=== PATIENT | female | born 1965 | race Hispanic/Latino ===

== ENCOUNTER 2019-01-17 01:25 | Emergency (ER) | payer MEDICAID ==
--- NOTE | 2019-01-17 02:04 | ED PDOC ---
Arrival/HPI - General Chief Complaint: Psychiatric Evaluation Time Seen by Provider: 01/17/19 01:25 Historian: Patient, EMS - History of Present Illness Narrative History of Present Illness (Text): 01/17/19 02:03 53 year old female, with no significant past medical history, presents to the emergency department by PD and EMS for evaluation for depression after being found walking on the [facility] with her car parked. Patient denies that she is depressed and reports she parked her car to stare at the bridge lights. Patient denies any fever, chills, chest pain, shortness of breath, nausea, vomiting, diarrhea, urinary symptoms, back pain, neck pain, headache, dizziness, or any other complaints. Past Medical History - Provider Review Nursing Documentation Reviewed: Yes - Psychiatric Hx Substance Use: No - Surgical History Hx Orthopedic Surgery: Yes (BL THR) Family/Social History - Physician Review Nursing Documentation Reviewed: Yes Family/Social History: No Known Family HX Smoking Status: Never Smoked Hx Alcohol Use: No Hx Substance Use: No Allergies/Home Meds Allergies/Adverse Reactions: Allergies No Known Allergies Allergy (Verified 01/17/19 01:35) Home Medications: Home Meds Medication Instructions Recorded Confirmed No Known Home Med 01/17/19 01/17/19 Review of Systems - Physician Review All systems were reviewed & negative as marked: Yes - Review of Systems Constitutional: absent: Fevers, Other (chills) Respiratory: absent: SOB Cardiovascular: absent: Chest Pain Gastrointestinal: absent: Diarrhea, Nausea, Vomiting Genitourinary Female: absent: Dysuria, Frequency, Hematuria Musculoskeletal: absent: Back Pain, Neck Pain Neurological: absent: Headache, Dizziness Psychiatric: Depression. absent: Suicidal Ideation Physical Exam Vital Signs Reviewed: Yes Vital Signs Temp Pulse Resp BP Pulse Ox 01/17/19 01:31 98.5 F 90 18 158/93 H 95 Temperature: Afebrile Blood Pressure: Normal Pulse: Regular Respiratory Rate: Normal Appearance: Positive for: Well-Appearing, Non-Toxic, Comfortable Pain Distress: None Mental Status: Positive for: Alert and Oriented X 3 - Systems Exam Head: Present: Atraumatic, Normocephalic Pupils: Present: PERRL Extroacular Muscles: Present: EOMI Conjunctiva: Present: Normal Mouth: Present: Moist Mucous Membranes Neck: Present: Normal Range of Motion Respiratory/Chest: Present: Clear to Auscultation, Good Air Exchange. No: Respiratory Distress, Accessory Muscle Use Cardiovascular: Present: Regular Rate and Rhythm, Normal S1, S2. No: Murmurs Abdomen: No: Tenderness, Distention, Peritoneal Signs Back: Present: Normal Inspection Upper Extremity: Present: Normal Inspection. No: Cyanosis, Edema Lower Extremity: Present: Normal Inspection. No: Edema Neurological: Present: GCS=15, CN II-XII Intact, Speech Normal Skin: Present: Warm, Dry, Normal Color. No: Rashes Psychiatric: Present: Alert, Oriented x 3, Normal Insight, Normal Concentration Medical Decision Making ED Course and Treatment: 01/17/19 02:21 Impression: 53 year old female presents for evaluation for depression after being found at the [facility] with her car parked. Plan: -- EKG -- Labs -- Chest X-ray -- Urinalysis -- PES Eval -- Reassess and disposition Progress Notes: CXR Impression: As read by me, No active disease EKG shows NSR at 88 BPM. Interpreted by me. 01/17/19 04:45 PES evaluated patient. Patient will have a face to face in the morning with Dr. Livingston. - Lab Interpretations I have reviewed the lab results: Yes - RAD Interpretation Radiology Orders: 01/17/19 01:39 CHEST PORTABLE [RAD] Stat Flight Instructor: ED Physician - EKG Interpretation Interpreted by ED Physician: Yes Type: 12 lead EKG - Transfer of Care Patient signed out to Dr:: delicia oliver re eval - Scribe Statement The provider has reviewed the documentation as recorded by the Taqueria Anderson Provider Scribe Attestation: All medical record entries made by the Taqueria were at my direction and personally dictated by me. I have reviewed the chart and agree that the record accurately reflects my personal performance of the history, physical exam, medical decision making, and the department course for this patient. I have also personally directed, reviewed, and agree with the discharge instructions and disposition. Disposition/Present on Arrival - Present on Arrival Any Indicators Present on Arrival: No History of DVT/PE: No History of Uncontrolled Diabetes: No Urinary Catheter: No History of Decub. Ulcer: No History Surgical Site Infection Following: None - Disposition Have Diagnosis and Disposition been Completed?: Yes Diagnosis: Depression Disposition Time: 07:00 Condition: GOOD Forms: [employer] (Swedish)
[2019-01-17 02:05] LABS: ACETAMINOPHEN < 10.0 ug/ml (10.0-20.0); SALICYLATE < 1 mg/dL (2.0-20.0)
[2019-01-17 02:06] LABS: ALB/GLOB RATIO 1.6 (1.1-1.8); ALBUMIN 4.3 g/dL (3.0-4.8); ALT/SGPT 28 U/L (7-56); AST/SGOT 33 U/L (14-36); BLOOD UREA NITROGEN 19 mg/dL (7-21); CALCIUM 9.6 mg/dL (8.4-10.5); GFR NON-AFRICAN AMERICAN > 60
[2019-01-17 02:13] LABS: BASO # 0.03 K/mm3 (0.0-2.0); BASO % 0.3 % (0.0-3.0); EOS # 0.2 (0.0-0.7); EOS % 1.7 % (1.5-5.0); HEMOGLOBIN 13.3 g/dL (12.0-16.0); LYMPH # 1.9 (1.2-3.4); LYMPH % 21.6 % (22.0-35.0); MEAN CELL VOLUME 87.6 fl (80.0-105.0); MEAN CORPUSCULAR HGB CONC 34.2 g/dl (31.0-37.0); MEAN PLATELET VOLUME 9.4 fl (7.0-11.0); MONO # 0.5 (0.1-0.6); MONO % 5.5 % (1.0-6.0); RBC 4.44 10^6/uL (3.5-6.1); RED CELL DISTRIBUTION WIDTH 15.1 % (11.5-14.5); WHITE BLOOD COUNT 8.9 10^3/uL (4.5-11.0)
[2019-01-17 03:37] LABS: BARBITURATES, UR NEGATIVE (NEGATIVE); BENZODIAZEPINES, UR NEGATIVE (NEGATIVE); OPIATES, UR NEGATIVE (NEGATIVE); PHENCYCLIDINE, UR NEGATIVE (NEGATIVE)
[2019-01-17 03:39] LABS: URINE APPEARANCE CLEAR (CLEAR); URINE BILIRUBIN NEGATIVE (NEGATIVE); URINE BLOOD SMALL (NEGATIVE); URINE COLOR STRAW (YELLOW); URINE GLUCOSE (UA) NEGATIVE (NEGATIVE); URINE LEUKOCYTE ESTERASE NEGATIVE Leu/uL (NEGATIVE); URINE PROTEIN NEGATIVE mg/dL (<30 mg/dL); URINE UROBILINOGEN 0.2 E.U./dL (<1 E.U./dL)
[2019-01-17 03:43] LABS: URINE BACTERIA FEW /hpf; URINE EPITHELIAL CELLS 0 - 2 /hpf (0-5); URINE RBC 0 - 2 /hpf (0-2); URINE WBC 0 - 2 /hpf (0-6)
--- NOTE | 2019-01-17 07:18 | ED PDOC ---
Physical Exam Vital Signs Reviewed: Yes Vital Signs Temp Pulse Resp BP Pulse Ox 01/17/19 03:47 80 18 123/73 96 01/17/19 01:31 98.5 F 90 18 158/93 H 95 Temperature: Afebrile Blood Pressure: Normal Pulse: Regular Respiratory Rate: Normal Appearance: Positive for: Well-Appearing, Non-Toxic, Comfortable Pain Distress: None Mental Status: Positive for: Alert and Oriented X 3 Medical Decision Making ED Course and Treatment: 01/17/19 07:17 Patient signed out to me by Dr. Greenberg, pending evaluation by Dr. Livingston 01/17/19 09:[address] Livingston and recommended for [facility] screening for committment 01/17/19 09:41 Became agitated and aggressive after being told that she would need [facility] screening. Medicated 01/17/19 18:46 Accepted by [facility] for commitment. Signed out to Dr. Huizar as pending [facility] bed. - Lab Interpretations Lab Results: Total Bilirubin 0.5 mg/dL (0.2-1.3) 01/17/19 01:45 AST 33 U/L (14-36) 01/17/19 01:45 ALT 28 U/L (7-56) 01/17/19 01:45 Alkaline Phosphatase 67 U/L (38-126) 01/17/19 01:45 Total Protein 7.1 g/dL (5.8-8.3) 01/17/19 01:45 Albumin 4.3 g/dL (3.0-4.8) 01/17/19 01:45 Globulin 2.8 gm/dL 01/17/19 01:45 Albumin/Globulin Ratio 1.6 (1.1-1.8) 01/17/19 01:45 Urine Color Straw (YELLOW) 01/17/19 03:00 Urine Appearance Clear (CLEAR) 01/17/19 03:00 Urine pH 6.0 (4.7-8.0) 01/17/19 03:00 Ur Specific [place] 1.010 (1.005-1.035) 01/17/19 03:00 Urine Protein Negative mg/dL (<30 mg/dL) 01/17/19 03:00 Urine Glucose (UA) Negative mg/dL (NEGATIVE) 01/17/19 03:00 Urine Ketones Negative mg/dL (NEGATIVE) 01/17/19 03:00 Urine Blood Small (NEGATIVE) H 01/17/19 03:00 Urine Nitrate Negative (NEGATIVE) 01/17/19 03:00 Urine Bilirubin Negative (NEGATIVE) 01/17/19 03:00 Urine Urobilinogen 0.2 E.U./dL (<1 E.U./dL) 01/17/19 03:00 Ur Leukocyte Esterase Negative Radha/uL (NEGATIVE) 01/17/19 03:00 Urine RBC 0 - 2 /hpf (0-2) 01/17/19 03:00 Urine WBC 0 - 2 /hpf (0-6) 01/17/19 03:00 Ur Epithelial Cells 0 - 2 /hpf (0-5) 01/17/19 03:00 Urine Bacteria Few /hpf (NONE) 01/17/19 03:00 - RAD Interpretation Radiology Orders: 01/17/19 01:39 CHEST PORTABLE [RAD] Stat - Scribe Statement The provider has reviewed the documentation as recorded by the Scribe Ortiz [place] All medical record entries made by the Scribe were at my direction and personally dictated by me. I have reviewed the chart and agree that the record accurately reflects my personal performance of the history, physical exam, medical decision making, and the department course for this patient. I have also personally directed, reviewed, and agree with the discharge instructions and disposition. Disposition/Present on Arrival - Present on Arrival Any Indicators Present on Arrival: No History of DVT/PE: No History of Uncontrolled Diabetes: No Urinary Catheter: No History of Decub. Ulcer: No History Surgical Site Infection Following: None - Disposition Have Diagnosis and Disposition been Completed?: Yes Diagnosis: Depression Disposition: HOSPITALIZED Disposition Time: 18:47 Patient Plan: Transfer To ([facility]) Patient Problems: Current Active Problems Problem Status Onset Depression Acute Condition: FAIR Forms: [employer] (Setswana)
--- NOTE | 2019-01-17 07:37 | RAD ---
Date of service: 01/17/2019 HISTORY: pes COMPARISON: No prior. TECHNIQUE: 1 view obtained. FINDINGS: LUNGS: No active pulmonary disease. PLEURA: No significant pleural effusion identified, no pneumothorax apparent. CARDIOVASCULAR: Calcific atherosclerotic changes are seen related to the thoracic aorta. Normal cardiac size. No pulmonary vascular congestion. OSSEOUS STRUCTURES: No significant abnormalities. VISUALIZED UPPER ABDOMEN: Normal. OTHER FINDINGS: None. IMPRESSION: No acute cardiopulmonary disease appreciated.
[2019-01-17] MEDS ORDERED: Oxymetazoline 0.05% Nasal Spray (30 ml) NS STA (11:28)
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
--- NOTE | 2019-01-17 17:37 | CARD ---
APPROVED REPORT Date of service: 01/17/2019 EKG Measurement Heart [id number] <Conclusion> Normal sinus rhythm Normal Electrocardiogram
--- NOTE | 2019-01-17 19:24 | ED PDOC ---
Physical Exam Vital Signs Temp Pulse Resp BP Pulse Ox 01/17/19 16:00 68 18 128/74 98 01/17/19 10:00 75 18 130/78 96 01/17/19 03:47 80 18 123/73 96 01/17/19 01:31 98.5 F 90 18 158/93 H 95 Medical Decision Making ED Course and Treatment: 01/17/19 19:21 Case endorsed to me by Dr. Candelario, pending bed availability for transfer to [facility]. 01/18/19 07:00 Case endorsed to /pending bed availability at [facility] - Lab Interpretations Lab Results: Total Bilirubin 0.5 mg/dL (0.2-1.3) 01/17/19 01:45 AST 33 U/L (14-36) 01/17/19 01:45 ALT 28 U/L (7-56) 01/17/19 01:45 Alkaline Phosphatase 67 U/L (38-126) 01/17/19 01:45 Total Protein 7.1 g/dL (5.8-8.3) 01/17/19 01:45 Albumin 4.3 g/dL (3.0-4.8) 01/17/19 01:45 Globulin 2.8 gm/dL 01/17/19 01:45 Albumin/Globulin Ratio 1.6 (1.1-1.8) 01/17/19 01:45 Urine Color Straw (YELLOW) 01/17/19 03:00 Urine Appearance Clear (CLEAR) 01/17/19 03:00 Urine pH 6.0 (4.7-8.0) 01/17/19 03:00 Ur Specific [place] 1.010 (1.005-1.035) 01/17/19 03:00 Urine Protein Negative mg/dL (<30 mg/dL) 01/17/19 03:00 Urine Glucose (UA) Negative mg/dL (NEGATIVE) 01/17/19 03:00 Urine Ketones Negative mg/dL (NEGATIVE) 01/17/19 03:00 Urine Blood Small (NEGATIVE) H 01/17/19 03:00 Urine Nitrate Negative (NEGATIVE) 01/17/19 03:00 Urine Bilirubin Negative (NEGATIVE) 01/17/19 03:00 Urine Urobilinogen 0.2 E.U./dL (<1 E.U./dL) 01/17/19 03:00 Ur Leukocyte Esterase Negative Radha/uL (NEGATIVE) 01/17/19 03:00 Urine RBC 0 - 2 /hpf (0-2) 01/17/19 03:00 Urine WBC 0 - 2 /hpf (0-6) 01/17/19 03:00 Ur Epithelial Cells 0 - 2 /hpf (0-5) 01/17/19 03:00 Urine Bacteria Few /hpf (NONE) 01/17/19 03:00 - RAD Interpretation Radiology Orders: 01/17/19 01:39 CHEST PORTABLE [RAD] Stat - Medication Orders Current Medication Orders: Ziprasidone (Geodon Cap) 20 mg PO Q6H PRN; Protocol PRN Reason: psychosis/agitation Ziprasidone (Geodon Inj) 20 mg IM Q6H PRN; Protocol PRN Reason: severe agitaiton/psychosis Last Admin: 01/17/19 10:12 Dose: 20 mg IM Administration Charges Document 01/17/19 10:12 [facility] (Rec: 01/17/19 10:[id number] Injection Site MAR Injection Site Right Deltoid Charges for Administration # of IM Administrations 1 Discontinued Medications Haloperidol Lactate (Haldol) 5 mg IM STAT STA; Protocol Stop: 01/17/19 09:25 Ibuprofen (Motrin Tab) 600 mg PO STAT STA Stop: 01/17/19 09:22 Last Admin: 01/17/19 09:35 Dose: 600 mg MAR Pain/Vitals Document 01/17/19 09:35 [facility] (Rec: 01/17/19 09:[address] [id number] Pain Reassessment Is This A Pain ReAssessment? No Lorazepam (Ativan) 2 mg IM ONCE ONE; Protocol Stop: 01/17/19 09:25 Oxymetazoline HCl (Afrin 0.05%) 0 ml NS STAT STA Stop: 01/17/19 11:29 Last Admin: 01/17/19 12:00 Dose: 2 sprays Disposition/Present on Arrival - Present on Arrival Any Indicators Present on Arrival: No History of DVT/PE: No History of Uncontrolled Diabetes: No Urinary Catheter: No History of Decub. Ulcer: No History Surgical Site Infection Following: None - Disposition Have Diagnosis and Disposition been Completed?: No Diagnosis: Depression Disposition: HOSPITALIZED Disposition Time: 07:00 Patient Problems: Current Active Problems Problem Status Onset Depression Acute Condition: STABLE Forms: [employer] (Portuguese)
--- NOTE | 2019-01-18 07:08 | ED PDOC ---
Physical Exam - Physical Exam Narrative Physical Exam (Text): 01/18/19 18:35 Patient continues to wait for a bed to become available at . Her care will be endorsed back to the night emergency department physician Dr. Srinivasan pending a bed becoming available. Vital Signs Reviewed: Yes Vital Signs Temp Pulse Resp BP Pulse Ox 01/18/19 06:02 62 16 123/71 99 01/18/19 03:39 97.8 F 78 16 142/78 99 01/18/19 02:15 81 18 110/68 99 01/18/19 00:07 85 18 111/74 98 01/17/19 22:05 87 18 110/69 99 01/17/19 20:00 98 H 18 104/65 99 01/17/19 16:00 68 18 128/74 98 01/17/19 10:00 75 18 130/78 96 01/17/19 03:47 80 18 123/73 96 01/17/19 01:31 98.5 F 90 18 158/93 H 95 Temperature: Afebrile Blood Pressure: Hypertensive Pulse: Regular Respiratory Rate: Normal Appearance: Positive for: Well-Appearing, Non-Toxic, Comfortable Pain Distress: None Mental Status: Positive for: Alert and Oriented X 3 Medical Decision Making ED Course and Treatment: 01/18/19 07:07: Case endorsed to me by . Pending bed availability at [facility]. Chest X-ray Dictator : Ortiz Gill MD Report Date : 01/17/2019 07:33:59 Date of service: 01/17/2019 HISTORY: pes COMPARISON: No prior. TECHNIQUE: 1 view obtained. FINDINGS: LUNGS: No active pulmonary disease. PLEURA: No significant pleural effusion identified, no pneumothorax apparent. CARDIOVASCULAR: Calcific atherosclerotic changes are seen related to the thoracic aorta. Normal cardiac size. No pulmonary vascular congestion. OSSEOUS STRUCTURES: No significant abnormalities. VISUALIZED UPPER ABDOMEN: Normal. OTHER FINDINGS: None. IMPRESSION: No acute cardiopulmonary disease appreciated. - Lab Interpretations Lab Results: Total Bilirubin 0.5 mg/dL (0.2-1.3) 01/17/19 01:45 AST 33 U/L (14-36) 01/17/19 01:45 ALT 28 U/L (7-56) 01/17/19 01:45 Alkaline Phosphatase 67 U/L (38-126) 01/17/19 01:45 Total Protein 7.1 g/dL (5.8-8.3) 01/17/19 01:45 Albumin 4.3 g/dL (3.0-4.8) 01/17/19 01:45 Globulin 2.8 gm/dL 01/17/19 01:45 Albumin/Globulin Ratio 1.6 (1.1-1.8) 01/17/19 01:45 Urine Color Straw (YELLOW) 01/17/19 03:00 Urine Appearance Clear (CLEAR) 01/17/19 03:00 Urine pH 6.0 (4.7-8.0) 01/17/19 03:00 Ur Specific [place] 1.010 (1.005-1.035) 01/17/19 03:00 Urine Protein Negative mg/dL (<30 mg/dL) 01/17/19 03:00 Urine Glucose (UA) Negative mg/dL (NEGATIVE) 01/17/19 03:00 Urine Ketones Negative mg/dL (NEGATIVE) 01/17/19 03:00 Urine Blood Small (NEGATIVE) H 01/17/19 03:00 Urine Nitrate Negative (NEGATIVE) 01/17/19 03:00 Urine Bilirubin Negative (NEGATIVE) 01/17/19 03:00 Urine Urobilinogen 0.2 E.U./dL (<1 E.U./dL) 01/17/19 03:00 Ur Leukocyte Esterase Negative Radha/uL (NEGATIVE) 01/17/19 03:00 Urine RBC 0 - 2 /hpf (0-2) 01/17/19 03:00 Urine WBC 0 - 2 /hpf (0-6) 01/17/19 03:00 Ur Epithelial Cells 0 - 2 /hpf (0-5) 01/17/19 03:00 Urine Bacteria Few /hpf (NONE) 01/17/19 03:00 - RAD Interpretation Radiology Orders: 01/17/19 01:39 CHEST PORTABLE [RAD] Stat - Medication Orders Current Medication Orders: Ziprasidone (Geodon Cap) 20 mg PO Q6H PRN; Protocol PRN Reason: psychosis/agitation Ziprasidone (Geodon Inj) 20 mg IM Q6H PRN; Protocol PRN Reason: severe agitaiton/psychosis Last Admin: 01/17/19 10:12 Dose: 20 mg IM Administration Charges Document 01/17/19 10:12 [facility] (Rec: 01/17/19 10:12 [id number] Injection Site MAR Injection Site Right Deltoid Charges for Administration # of IM Administrations 1 Discontinued Medications Haloperidol Lactate (Haldol) 5 mg IM STAT STA; Protocol Stop: 01/17/19 09:25 Ibuprofen (Motrin Tab) 600 mg PO STAT STA Stop: 01/17/19 09:22 Last Admin: 01/17/19 09:35 Dose: 600 mg MAR Pain/Vitals Document 01/17/19 09:35 [facility] (Rec: 01/17/19 09:35 [facility][id number][facility] Pain Reassessment Is This A Pain ReAssessment? No Lorazepam (Ativan) 2 mg IM ONCE ONE; Protocol Stop: 01/17/19 09:25 Oxymetazoline HCl (Afrin 0.05%) 0 ml NS STAT STA Stop: 01/17/19 11:29 Last Admin: 01/17/19 12:00 Dose: 2 sprays - Scribe Statement The provider has reviewed the documentation as recorded by the Taqueria Bejarano Provider Scribe Attestation: All medical record entries made by the Scribe were at my direction and personally dictated by me. I have reviewed the chart and agree that the record accurately reflects my personal performance of the history, physical exam, medical decision making, and the department course for this patient. I have also personally directed, reviewed, and agree with the discharge instructions and disposition. Disposition/Present on Arrival - Present on Arrival Any Indicators Present on Arrival: No History of DVT/PE: No History of Uncontrolled Diabetes: No Urinary Catheter: No History of Decub. Ulcer: No History Surgical Site Infection Following: None - Disposition Have Diagnosis and Disposition been Completed?: Yes Diagnosis: Depression Disposition: HOSPITALIZED Disposition Time: 18:36 Patient Problems: Current Active Problems Problem Status Onset Depression Acute Condition: STABLE Forms: [employer] (Cypriot)
--- NOTE | 2019-01-18 16:34 | CP.PCM.PCO ---
Physician Communication Note - Physician Communication Note Physician Communication Note: due to high volume of pt, pt was not seen today, will f/u tomorrow
--- NOTE | 2019-01-18 19:46 | ED PDOC ---
Physical Exam Vital Signs Temp Pulse Resp BP Pulse Ox 01/18/19 19:02 98.0 F 80 16 114/81 98 01/18/19 09:55 98.2 F 89 19 145/87 99 01/18/19 06:02 62 16 123/71 99 01/18/19 03:39 97.8 F 78 16 142/78 99 01/18/19 02:15 81 18 110/68 99 01/18/19 00:07 85 18 111/74 98 01/17/19 22:05 87 18 110/69 99 01/17/19 20:00 98 H 18 104/65 99 01/17/19 16:00 68 18 128/74 98 01/17/19 10:00 75 18 130/78 96 01/17/19 03:47 80 18 123/73 96 01/17/19 01:31 98.5 F 90 18 158/93 H 95 Medical Decision Making ED Course and Treatment: 01/18/19 19:45 Case endorsed to me by Dr. Perry. Awaiting [facility] [place]. 01/19/19 07:00 Case endorsed to /patient awaiting [facility] placement - Lab Interpretations Lab Results: Total Bilirubin 0.5 mg/dL (0.2-1.3) 01/17/19 01:45 AST 33 U/L (14-36) 01/17/19 01:45 ALT 28 U/L (7-56) 01/17/19 01:45 Alkaline Phosphatase 67 U/L (38-126) 01/17/19 01:45 Total Protein 7.1 g/dL (5.8-8.3) 01/17/19 01:45 Albumin 4.3 g/dL (3.0-4.8) 01/17/19 01:45 Globulin 2.8 gm/dL 01/17/19 01:45 Albumin/Globulin Ratio 1.6 (1.1-1.8) 01/17/19 01:45 Urine Color Straw (YELLOW) 01/17/19 03:00 Urine Appearance Clear (CLEAR) 01/17/19 03:00 Urine pH 6.0 (4.7-8.0) 01/17/19 03:00 Ur Specific [place] 1.010 (1.005-1.035) 01/17/19 03:00 Urine Protein Negative mg/dL (<30 mg/dL) 01/17/19 03:00 Urine Glucose (UA) Negative mg/dL (NEGATIVE) 01/17/19 03:00 Urine Ketones Negative mg/dL (NEGATIVE) 01/17/19 03:00 Urine Blood Small (NEGATIVE) H 01/17/19 03:00 Urine Nitrate Negative (NEGATIVE) 01/17/19 03:00 Urine Bilirubin Negative (NEGATIVE) 01/17/19 03:00 Urine Urobilinogen 0.2 E.U./dL (<1 E.U./dL) 01/17/19 03:00 Ur Leukocyte Esterase Negative Radha/uL (NEGATIVE) 01/17/19 03:00 Urine RBC 0 - 2 /hpf (0-2) 01/17/19 03:00 Urine WBC 0 - 2 /hpf (0-6) 01/17/19 03:00 Ur Epithelial Cells 0 - 2 /hpf (0-5) 01/17/19 03:00 Urine Bacteria Few /hpf (NONE) 01/17/19 03:00 - RAD Interpretation Radiology Orders: 01/17/19 01:39 CHEST PORTABLE [RAD] Stat - Medication Orders Current Medication Orders: Ziprasidone (Geodon Cap) 20 mg PO Q6H PRN; Protocol PRN Reason: psychosis/agitation Last Admin: 01/18/19 10:03 Dose: 20 mg Ziprasidone (Geodon Inj) 20 mg IM Q6H PRN; Protocol PRN Reason: severe agitaiton/psychosis Last Admin: 01/17/19 10:12 Dose: 20 mg IM Administration Charges Document 01/17/19 10:12 [facility] (Rec: 01/17/19 10:12 [id number] Injection Site MAR Injection Site Right Deltoid Charges for Administration # of IM Administrations 1 Discontinued Medications Haloperidol Lactate (Haldol) 5 mg IM STAT STA; Protocol Stop: 01/17/19 09:25 Ibuprofen (Motrin Tab) 600 mg PO STAT STA Stop: 01/17/19 09:22 Last Admin: 01/17/19 09:35 Dose: 600 mg MAR Pain/Vitals Document 01/17/19 09:35 [facility] (Rec: 01/17/19 09:35 [id number] Pain Reassessment Is This A Pain ReAssessment? No Lorazepam (Ativan) 2 mg IM ONCE ONE; Protocol Stop: 01/17/19 09:25 Oxymetazoline HCl (Afrin 0.05%) 0 ml NS STAT STA Stop: 01/17/19 11:29 Last Admin: 01/17/19 12:00 Dose: 2 sprays - Scribe Statement The provider has reviewed the documentation as recorded by the Patriceibsmith Lundy All medical record entries made by the Scribe were at my direction and personally dictated by me. I have reviewed the chart and agree that the record accurately reflects my personal performance of the history, physical exam, medical decision making, and the department course for this patient. I have also personally directed, reviewed, and agree with the discharge instructions and disposition. Disposition/Present on Arrival - Present on Arrival Any Indicators Present on Arrival: No History of DVT/PE: No History of Uncontrolled Diabetes: No Urinary Catheter: No History of Decub. Ulcer: No History Surgical Site Infection Following: None - Disposition Have Diagnosis and Disposition been Completed?: No Diagnosis: Depression Disposition: HOSPITALIZED Disposition Time: 07:00 Patient Problems: Current Active Problems Problem Status Onset Depression Acute Condition: STABLE Forms: [employer] (Telugu)
--- NOTE | 2019-01-19 07:12 | ED PDOC ---
Physical Exam Vital Signs Temp Pulse Resp BP Pulse Ox 01/19/19 06:57 98.3 F 84 18 120/84 96 01/19/19 04:11 79 18 119/68 98 01/19/19 02:57 85 18 121/66 98 01/19/19 01:20 83 18 120/73 97 01/18/19 23:40 81 20 115/69 97 01/18/19 21:38 98.6 F 79 20 119/79 97 01/18/19 19:02 98.0 F 80 16 114/81 98 01/18/19 09:55 98.2 F 89 19 145/87 99 01/18/19 06:02 62 16 123/71 99 01/18/19 03:39 97.8 F 78 16 142/78 99 01/18/19 02:15 81 18 110/68 99 01/18/19 00:07 85 18 111/74 98 01/17/19 22:05 87 18 110/69 99 01/17/19 20:00 98 H 18 104/65 99 01/17/19 16:00 68 18 128/74 98 01/17/19 10:00 75 18 130/78 96 01/17/19 03:47 80 18 123/73 96 01/17/19 01:31 98.5 F 90 18 158/93 H 95 Medical Decision Making ED Course and Treatment: 01/19/19 07:00 Case endorsed to me by Dr. Srinivasan pending [facility] bed/placement. 01/19/19 16:30 patient accepted to transfer to [facility] for inpt tx for depression. - Lab Interpretations Lab Results: Total Bilirubin 0.5 mg/dL (0.2-1.3) 01/17/19 01:45 AST 33 U/L (14-36) 01/17/19 01:45 ALT 28 U/L (7-56) 01/17/19 01:45 Alkaline Phosphatase 67 U/L (38-126) 01/17/19 01:45 Total Protein 7.1 g/dL (5.8-8.3) 01/17/19 01:45 Albumin 4.3 g/dL (3.0-4.8) 01/17/19 01:45 Globulin 2.8 gm/dL 01/17/19 01:45 Albumin/Globulin Ratio 1.6 (1.1-1.8) 01/17/19 01:45 Urine Color Straw (YELLOW) 01/17/19 03:00 Urine Appearance Clear (CLEAR) 01/17/19 03:00 Urine pH 6.0 (4.7-8.0) 01/17/19 03:00 Ur Specific [place] 1.010 (1.005-1.035) 01/17/19 03:00 Urine Protein Negative mg/dL (<30 mg/dL) 01/17/19 03:00 Urine Glucose (UA) Negative mg/dL (NEGATIVE) 01/17/19 03:00 Urine Ketones Negative mg/dL (NEGATIVE) 01/17/19 03:00 Urine Blood Small (NEGATIVE) H 01/17/19 03:00 Urine Nitrate Negative (NEGATIVE) 01/17/19 03:00 Urine Bilirubin Negative (NEGATIVE) 01/17/19 03:00 Urine Urobilinogen 0.2 E.U./dL (<1 E.U./dL) 01/17/19 03:00 Ur Leukocyte Esterase Negative Radha/uL (NEGATIVE) 01/17/19 03:00 Urine RBC 0 - 2 /hpf (0-2) 01/17/19 03:00 Urine WBC 0 - 2 /hpf (0-6) 01/17/19 03:00 Ur Epithelial Cells 0 - 2 /hpf (0-5) 01/17/19 03:00 Urine Bacteria Few /hpf (NONE) 01/17/19 03:00 - RAD Interpretation Radiology Orders: 01/17/19 01:39 CHEST PORTABLE [RAD] Stat - Medication Orders Current Medication Orders: Ziprasidone (Geodon Cap) 20 mg PO Q6H PRN; Protocol PRN Reason: psychosis/agitation Last Admin: 01/18/19 10:03 Dose: 20 mg Ziprasidone (Geodon Inj) 20 mg IM Q6H PRN; Protocol PRN Reason: severe agitaiton/psychosis Last Admin: 01/17/19 10:12 Dose: 20 mg IM Administration Charges Document 01/17/19 10:12 [facility] (Rec: 01/17/19 10:12 [id number] Injection Site MAR Injection Site Right Deltoid Charges for Administration # of IM Administrations 1 Discontinued Medications Haloperidol Lactate (Haldol) 5 mg IM STAT STA; Protocol Stop: 01/17/19 09:25 Ibuprofen (Motrin Tab) 600 mg PO STAT STA Stop: 01/17/19 09:22 Last Admin: 01/17/19 09:35 Dose: 600 mg MAR Pain/Vitals Document 01/17/19 09:35 [employer] (Rec: 01/17/19 09:35 [employer] [id number]) Pain Reassessment Is This A Pain ReAssessment? No Ibuprofen (Motrin Tab) 600 mg PO STAT STA Stop: 01/18/19 23:07 Last Admin: 01/18/19 23:17 Dose: 600 mg MAR Pain/Vitals Document 01/18/19 23:17 KV (Rec: 01/18/19 23:17 KV [id number]) Pain Reassessment Is This A Pain ReAssessment? No Sleep Is patient sleeping during reassessment? No Presence of Pain Presence of Pain Yes Pain Scale Used Protocol: PSCALES Pain Scale Used Numeric Location Pain Location Body Site Shoulder Intensity 4 Scale Used Numeric Lorazepam (Ativan) 2 mg IM ONCE ONE; Protocol Stop: 01/17/19 09:25 Oxymetazoline HCl (Afrin 0.05%) 0 ml NS STAT STA Stop: 01/17/19 11:29 Last Admin: 01/17/19 12:00 Dose: 2 sprays - Scribe Statement The provider has reviewed the documentation as recorded by the Taqueria Anderson Provider Scribe Attestation: All medical record entries made by the Scribe were at my direction and pe rsonally dictated by me. I have reviewed the chart and agree that the record accurately reflects my personal performance of the history, physical exam, medical decision making, and the department course for this patient. I have also personally directed, reviewed, and agree with the discharge instructions and disposition. Disposition/Present on Arrival - Present on Arrival Any Indicators Present on Arrival: No History of DVT/PE: No History of Uncontrolled Diabetes: No Urinary Catheter: No History of Decub. Ulcer: No History Surgical Site Infection Following: None - Disposition Have Diagnosis and Disposition been Completed?: Yes Diagnosis: Depression Disposition: Transfer [facility] Disposition Time: 16:31 Patient Plan: Transfer To ([facility] ED) Patient Problems: Current Active Problems Problem Status Onset Depression Acute Condition: STABLE Forms: [employer] ([place]orese)
--- NOTE | 2019-01-19 17:05 | PN ---
DATE: 01/19/2019 SUBJECTIVE: The patient was seen today in the emergency room room. The patient presented the same way poor personal hygiene. The patient is in manic stage and the patient does not have insight into her mental illness. The patient was having circumstantial and tangential thought process, loud speech, but no agitation, no aggression. The patient is aware that she needs to go to [facility] and she was accepted for screening. OBJECTIVE: Vital signs are stable. MEDICATIONS: Reviewed. Geodon as needed ordered. LABORATORY DATA: Reviewed. Chemistry reviewed. Urinalysis reviewed. Toxicology reviewed. MENTAL STATUS EXAMINATION: The patient presented to be emotional, labile, intense eye contact. Mood described as perfectly fine. Affect was labile, mood incongruent. Thought process circumstantial, tangential. The patient has pressured speech, racing thoughts. Thought content, despite the fact that the patient denied visual, auditory, tactile hallucinations, the patient appears to be internally preoccupied. The patient is paranoid and disorganized. Insight and judgment seemed to be severely impaired. Impulses are unpredictable. IMPRESSION: The patient obviously is in manic stage, which could be related to the medical issues as well as chronic mental illness. The patient . 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 The patient was observed disorganized with disorganized thoughts and behavior. The patient still unpredictable. The patient was brought in by police after found to be wandering [place]. The patient is in psychotic stage, definitely would require further hospitalization. The patient will be transferred to [facility] whenever they have bed available. Thank you very much for letting me participate in care of your patient. Lilliam Livingston MD
[2019-01-19 17:45] VITALS: BP 113/76; PULSE 86; RESP 19; TEMP 98.6; O2SAT 100
== END 2019-01-19 17:42 | disposition short-term general hospital (02) ==
LOC: ED 01:25
DX: F32.9 Major depressive disorder, single episode, unspecified (principal)
CPT/HCPCS: 71045; 80053; 80320; 80324; 80329; 80345; 80346; 80349; 80353; 80358; 80361; 81001; 83735; 83992; 85025; 90791; 93005; 96372; 99285; J3486